=== PATIENT | male | born 1975 | race Caucasian/White ===

== ENCOUNTER 2023-05-14 04:15 | Day surgery (SDC) | payer OTHER ==
[2023-05-10 15:31] VITALS: BMI 34.1
[2023-05-14 12:05] VITALS: RESP 18
[2023-05-14] MEDS ORDERED: MIDAZOLAM HCL 2 MG/2 ML SINGLE DOSE VIAL ONE (14:23)
[2023-05-14] MEDS ORDERED: PROPOFOL 20 ML ONE (14:29)
[2023-05-14] MEDS ORDERED: ONDANSETRON 4 MG/2 ML VIAL ONE (14:29)
[2023-05-14 15:39] VITALS: BP 125/82; PULSE 64; TEMP 97.3
== END 2023-05-14 15:50 | disposition home or self-care (01) ==
LOC: JASU-SURG 04:15
PROVIDERS: ATTEND Urology
PROC: 0TF6XZZ Fragmentation in Right Ureter, External Approach (ICD-10-PCS; principal; 2023-05-14 14:00)
DX: N20.0 Calculus of kidney (principal)
CPT/HCPCS: 82962